=== PATIENT | female | born 1985 | race Caucasian/White ===

== ENCOUNTER 2024-05-21 21:24 | Day surgery (SDC) | payer BC ==
[2024-05-21 22:03] VITALS: BMI 23.6
[2024-05-21] MEDS ORDERED: hydrALAZINE 20 MG/ML VIAL SLOW IVP PRN (22:06)
[2024-05-22 00:37] LABS: Fetal Membranes Rupture No Membranes Rupture (No Rupture)
== END 2024-05-22 00:45 | disposition home or self-care (01) ==
LOC: CSHLD/OP 21:24
PROVIDERS: ATTEND Obstetrics & Gynecology
DX: O46.93 Antepartum hemorrhage, unspecified, third trimester (principal); Z3A.31 31 weeks gestation of pregnancy; Z91.013 Allergy to seafood; Z79.899 Other long term (current) drug therapy
CPT/HCPCS: 84112; 99283

== ENCOUNTER 2024-07-19 10:29 | Inpatient (IN) | payer BC ==
[2024-07-28] MEDS ORDERED: hydrALAZINE 20 MG/ML VIAL SLOW IVP PRN (18:45)
[2024-07-28] MEDS ORDERED: Promethazine HCl 25 MG/ML VIAL IM PRN (18:45)
[2024-07-28] MEDS ORDERED: HYDROcodone/Acetaminophen 5/325 mg Tablet PO PRN ×2 (18:45)
[2024-07-28] MEDS ORDERED: Lidocaine 1% (PF) 30 ML VIAL SC PRN (18:45)
[2024-07-28] MEDS ORDERED: Oxytocin 30 units/NS 500 ML 500 ML IV SCH ×2 (18:45)
[2024-07-28] MEDS ORDERED: Ondansetron PF 4 MG/2 ML Vial IVP PRN (18:45)
[2024-07-28] MEDS ORDERED: Ibuprofen 800 MG TAB PO PRN (18:45)
[2024-07-28] MEDS ORDERED: Fentanyl 100 MCG/2 ML VIAL SLOW IVP PRN (18:46)
[2024-07-28 18:58] VITALS: BMI 26.6
[2024-07-28 19:39] LABS: Hematocrit 36.3 % (34.9-44.5); Hemoglobin 12.6 g/dL (12.0-15.5); Mean Corpuscular HGB CONC 34.7 g/dL (32.0-36.0); Mean Corpuscular Hemoglobin 34.1 pg (27.0-33.0); Mean Corpuscular Volume 98.1 fL (81.6-98.3); Mean Platelet Volume 10.8 fL (7.4-10.4); Platelet Count 191 10x3/uL (150-450); RBC Distribution Width 12.7 % (11.5-14.5); White Blood Cell (WBC) Count 10.33 10x3/uL (3.5-10.5)
[2024-07-28] MEDS: Misoprostol 100 MCG TAB VAG SCH (20:28)
[2024-07-28 21:30] LABS: Syphilis Antibody Nonreactive (Nonreactive); Syphilis Antibody Index 0.12 S/CO (<1.00 Non-Reactive)
[2024-07-28 21:33] LABS: HBsAg Index 0.22 S/CO (0-0.99); Hep B Surf Ag - L&D Non-Reactive S/CO (NonReactive)
[2024-07-28] MEDS: Lactated Ringer's 1,000 ML IV SCH (22:00)
[2024-07-28] MEDS: Terbutaline Sulfate 1 MG/ML VIAL ONE (23:59)
[2024-07-29] MEDS: Misoprostol 100 MCG TAB VAG SCH (01:24)
[2024-07-29] MEDS: Terbutaline Sulfate 1 MG/ML VIAL SC SCH (01:24)
[2024-07-29] MEDS: Acetaminophen 500 MG TAB PO SCH (01:36)
[2024-07-29] MEDS ORDERED: Penicillin G Potassium 5 MILL.UNITS in Sodium Chloride 0.9% 100 ML IVPB SCH (08:15)
[2024-07-29] MEDS ORDERED: Ondansetron PF 4 MG/2 ML Vial IVP PRN ×4 (11:33→20:41)
[2024-07-29] MEDS ORDERED: Moisturizing Cream (Eucerin) 113 GM JAR TOP PRN ×2 (11:33→17:33)
[2024-07-29] MEDS ORDERED: diphenhydrAMINE 50 MG/ML VIAL IVP PRN ×2 (11:33→17:33)
[2024-07-29] MEDS ORDERED: Acetaminophen 325 MG TAB PO PRN (11:33)
[2024-07-29] MEDS ORDERED: Naloxone HCl 0.4 mg/ml Vial IVP PRN ×4 (11:33→17:33)
[2024-07-29] MEDS ORDERED: Promethazine HCl 25 MG/ML VIAL IM PRN ×2 (11:33→17:33)
[2024-07-29] MEDS ORDERED: Lactated Ringer's 500 ML IV PRN (11:33)
[2024-07-29] MEDS ORDERED: ePHEDrine Sulfate 50 MG/10 ML VIAL SLOW IVP PRN (11:33)
[2024-07-29] MEDS ORDERED: Communication Order-Pharmacy FS SCH ×2 (11:45→17:45)
[2024-07-29] MEDS: fentaNYL 2 mcg/Ropivacaine 0.2% Epidural 100 ML CADD EPIDURAL SCH (12:02)
[2024-07-29] MEDS ORDERED: Bicitra 30 ML UDCUP PO PRN (16:48)
[2024-07-29] MEDS ORDERED: Famotidine/PF 20 mg/2ml Vial SLOW IVP PRN (16:48)
[2024-07-29] MEDS ORDERED: CEFAZOLIN 2 GM in Sodium Chloride 0.9% 100 ML IVPB SCH (17:00)
[2024-07-29] MEDS ORDERED: Azithromycin 500 MG in Sodium Chloride 0.9% 250 ML 250 ML IVPB SCH (17:00)
[2024-07-29] MEDS ORDERED: Naloxone HCl 0.4 mg/ml Vial IV PRN (17:33)
[2024-07-29] MEDS ORDERED: HYDROmorphone 0.5 MG/0.5 ML SYRINGE SLOW IVP PRN (17:33)
[2024-07-29] MEDS ORDERED: Meperidine HCl/PF 25 MG (1 mL) VIAL SLOW IVP PRN (17:33)
[2024-07-29] MEDS ORDERED: Ketorolac Tromethamine 30 MG (1 mL) VIAL IVP SCH (17:45)
[2024-07-29] MEDS: Dexmedetomidine 200 MCG/2 ML VIAL ONE (19:34)
[2024-07-29] MEDS: fentaNYL/Ropivacaine Epidural 100 ML ONE (19:34)
[2024-07-29] MEDS: CEFAZOLIN 2 GM VIAL ONE ×2 (19:34→19:35)
[2024-07-29] MEDS: Penicillin G 2.5 MILL.units 2.5 MILL.UNITS in Premix 1 BAG IVPB SCH (19:34)
[2024-07-29] MEDS: Azithromycin 500 MG VIAL ONE (19:34)
[2024-07-29] MEDS: PHENYLEPHRINE-NS 100 MCG/ML 10 ML SYRINGE ONE (19:35)
[2024-07-29] MEDS: Ondansetron PF 4 MG/2 ML Vial ONE (19:35)
[2024-07-29] MEDS: Oxytocin 10 UNITS/ML VIAL ONE ×2 (19:35→19:36)
[2024-07-29] MEDS: Ketorolac Tromethamine 30 MG (1 mL) VIAL ONE (19:35)
[2024-07-29] MEDS: ePHEDrine Sulfate 50 MG/10 ML VIAL ONE (19:35)
[2024-07-29] MEDS: Morphine PF 10 MG/10 ML VIAL ONE (19:35)
[2024-07-29] MEDS: Fentanyl 100 MCG/2 ML VIAL SLOW IVP PRN (19:39)
[2024-07-29] MEDS ORDERED: Bisacodyl 10 MG SUPP PR PRN (20:41)
[2024-07-29] MEDS ORDERED: Oxytocin 30 units/NS 500 ML 500 ML IV SCH (20:41)
[2024-07-29] MEDS ORDERED: hydrALAZINE 20 MG/ML VIAL SLOW IVP PRN (20:41)
[2024-07-29] MEDS ORDERED: Lanolin Ointment 7 GM TUBE TOP PRN (20:41)
[2024-07-30 05:38] LABS: Hematocrit 33.5 % (34.9-44.5); Hemoglobin 11.2 g/dL (12.0-15.5); Mean Corpuscular HGB CONC 33.4 g/dL (32.0-36.0); Mean Corpuscular Hemoglobin 33.3 pg (27.0-33.0); Mean Corpuscular Volume 99.7 fL (81.6-98.3); Mean Platelet Volume 10.4 fL (7.4-10.4); Platelet Count 158 10x3/uL (150-450); RBC Distribution Width 12.7 % (11.5-14.5); Red Blood Cell (RBC) Count 3.36 10x6/uL (3.90-5.03); White Blood Cell (WBC) Count 10.95 10x3/uL (3.5-10.5)
[2024-07-30] MEDS: Ferrous Sulfate 325 MG TAB PO SCH (05:40)
[2024-07-30] MEDS: Docusate 100 MG CAP PO SCH (05:41)
[2024-07-30] MEDS: Ketorolac Tromethamine 30 MG (1 mL) VIAL IVP PRN (05:46)
[2024-07-30] MEDS: Boostrix 0.5 ML (Tdap) VIAL (>/=7 yrs of age) IM ONE (07:37)
[2024-07-30] MEDS: Prenatal Vitamin 1 TAB PO SCH (08:29)
[2024-07-30] MEDS: HYDROcodone/Acetaminophen 5/325 mg Tablet PO PRN (10:21)
[2024-07-30] MEDS: Ketorolac Tromethamine 30 MG (1 mL) VIAL IVP SCH (20:17)
[2024-07-30] MEDS ORDERED: Ibuprofen 800 MG TAB PO SCH (22:00)
[2024-07-31] MEDS: HYDROcodone/Acetaminophen 5/325 mg Tablet PO PRN (09:45)
[2024-07-31] MEDS: CeleCOXIB 100 MG CAP PO SCH (09:46)
[2024-07-31] MEDS: Simethicone Chewable 80 MG TAB PO PRN (13:26)
[2024-08-01 07:57] VITALS: BP 116/67; TEMP 98.3
== END 2024-08-01 11:55 | disposition home or self-care (01) | DRG 788 ==
LOC: CSHLD 07-28 18:36 → CSHPP 07-29 19:59
PROVIDERS: ADMIT Obstetrics & Gynecology; ATTEND Obstetrics & Gynecology
PROC: 3E0P7VZ Introduction of Hormone into Female Reproductive, Via Natural or Artificial Opening (ICD-10-PCS; 2024-07-28)
PROC: 10D00Z1 Extraction of Products of Conception, Low, Open Approach (ICD-10-PCS; principal; 2024-07-29)
PROC: 10907ZC Drainage of Amniotic Fluid, Therapeutic from Products of Conception, Via Natural or Artificial Opening (ICD-10-PCS; 2024-07-29)
PROC: 10H07YZ Insertion of Other Device into Products of Conception, Via Natural or Artificial Opening (ICD-10-PCS; 2024-07-29)
PROC: 3E033XZ Introduction of Vasopressor into Peripheral Vein, Percutaneous Approach (ICD-10-PCS; 2024-07-29)
DX: O99.824 Streptococcus B carrier state complicating childbirth (principal); O48.0 Post-term pregnancy; Z91.013 Allergy to seafood; Z3A.41 41 weeks gestation of pregnancy; Z37.0 Single live birth; O76 Abnormality in fetal heart rate and rhythm complicating labor and delivery; O77.0 Labor and delivery complicated by meconium in amniotic fluid
CPT/HCPCS: 36415; 51702; 76815; 85027; 86780; 86850; 86900; 86901; 87340; J1885; J2274; J2405; J2590; J3010; J3105; J7120